=== PATIENT | female | born 1965 | race African-American/Black ===

== ENCOUNTER 2017-12-12 09:58 | Inpatient (IN) | payer MEDICAID, OTHER ==
[~2017-12-12] VITALS: Ht 149.9 cm; Wt 78.3 kg
[~2017-12-12 09:58] MED LIST: ASPI-556 PO; BUPR300T54 PO; FLUO-191 PO; HYDR25TA PO; LISI-662 PO; RISP4 PO; TRAZ-144 PO
[2017-12-12] MEDS ORDERED: AMLO2.5T PO (10:09)
[2017-12-12] MEDS ORDERED: ARIP2 PO (10:09)
[2017-12-12] MEDS ORDERED: AmLODIPine BESYLATE 5 MG TABLET PO ONE (10:45)
[2017-12-12 11:37] LABS: BASOPHILS % (AUTO) 0.6 % (0.0-2.0); EOSINOPHILS % (AUTO) 2.9 % (1.0-6.0); HEMATOCRIT 41.4 % (36-46); HEMOGLOBIN 14.3 g/dL (12.0-16.0); LYMPHOCYTES % (AUTO) 19.5 % (22.0-44.0); MEAN CORPUSCULAR HEMOGLOBIN 28.9 pg (26.0-34.0); MEAN CORPUSCULAR HGB CONC 34.5 G/dL (31.0-37.0); MEAN CORPUSCULAR VOLUME 84 fL (80-100); MONOCYTES # (AUTO) 0.7 K/uL (0.1-1.0); NEUTROPHILS # (AUTO) 7.1 K/uL (1.8-7.7); PLATELET COUNT (AUTO) 251 K/uL (150-450); RED BLOOD CELL COUNT(AUTO) 4.93 MIL/uL (4.00-5.20); RED CELL DISTRIBUTION WIDTH 14.2 % (11.5-14.5)
[2017-12-12 11:43] LABS: ANION GAP 8 mmol/L (8-16); CALCIUM, TOTAL 8.5 mg/dL (8.8-10.5); CARBON DIOXIDE 27 mmol/L (22-29); CHLORIDE 106 mmol/L (98-107); CREATININE 1.01 mg/dL (0.60-1.30); GLOMERULAR FILTR. RATE CALC > 60 mL/min (>60); GLUCOSE,RANDOM 99 mg/dL (70-110); POTASSIUM 4.2 mmol/L (3.5-5.1); SODIUM SERUM 141 mmol/L (136-145); UREA NITROGEN, BLOOD 18 mg/dL (7-18)
[2017-12-12 11:49] LABS: ALANINE AMINOTRANSFERASE 34 U/L (12-78); ALBUMIN 3.3 g/dL (3.4-5.0); ALKALINE PHOSPHATASE 106 U/L (46-116); ASPARTATE AMINOTRANSFERASE 18 U/L (15-37); BILIRUBIN,TOTAL 0.3 mg/dL (0.1-1.0); TOTAL PROTEIN, SERUM 7.2 g/dL (6.4-8.2)
[2017-12-12 12:07] LABS: AMPHET/METH SCREEN,URINE NEGATIVE (NEGATIVE); BARBITURATE SCREEN, URINE NEGATIVE (NEGATIVE); BENZODIAZEPINES SCREEN,URINE NEGATIVE (NEGATIVE); CANNABINOID SCREEN,URINE NEGATIVE (NEGATIVE); COCAINE SCREEN,URINE NEGATIVE (NEGATIVE); METHADONE SCREEN, URINE NEGATIVE (NEGATIVE); OPIATE SCREEN,URINE NEGATIVE (NEGATIVE)
[2017-12-12 12:08] LABS: PHENCYCLIDINE SCREEN,URINE NEGATIVE (NEGATIVE)
[2017-12-12] MEDS ORDERED: HYDROCHLOROTHIAZIDE 25 MG TABLET PO ONE (13:15)
[2017-12-12] MEDS ORDERED: ACETAMINOPHEN 325 MG TABLET PO PRN (13:30)
[2017-12-12] MEDS ORDERED: IBUPROFEN 400 MG TABLET PO PRN (13:30)
[2017-12-12] MEDS ORDERED: LISINOPRIL 20 MG TABLET PO ONE (14:15)
[2017-12-12] MEDS ORDERED: LISINOPRIL 10 MG TABLET ONE (15:07)
[2017-12-12] MEDS: HALOPERIDOL 5 MG TABLET PO PRN (18:11)
[2017-12-12] MEDS: LORazepam 2 MG TABLET PO PRN (18:11)
[2017-12-12 18:29] VITALS: BP 158/111
[2017-12-12 19:36] VITALS: BP 135/87
[2017-12-12] MEDS ORDERED: CloNIDine HCL 0.1 MG TABLET PO PRN (19:45)
[2017-12-12] MEDS ORDERED: PNEUMOCOCCAL VACCINE POLYVALENT 0.5 ML VIAL [PPSV23] IM ONE (21:00)
[2017-12-13 05:02] VITALS: BP 141/96
[2017-12-13] MEDS: HALOPERIDOL 5 MG TABLET PO PRN (08:57)
[2017-12-13] MEDS: AmLODIPine BESYLATE 5 MG TABLET PO SCH (08:57)
[2017-12-13] MEDS: LORazepam 2 MG TABLET PO PRN (08:57)
[2017-12-13 09:32] LABS: HEMOGLOBIN A1C 6.1 % (4.5-6.2)
[2017-12-13 09:43] LABS: CHOL/HDL RATIO 3.7 (3.9-5.7); THYROID STIMULATING HORMONE 2.13 uIU/mL (0.36-3.74)
[2017-12-13] MEDS: FLUoxetine HCL 20 MG CAPSULE PO SCH (10:21)
[2017-12-13] MEDS: ARIPiprazole 10 MG TABLET PO SCH (10:21)
[2017-12-13 10:25] VITALS: BP 130/85
[2017-12-13 16:09] VITALS: BP 130/91
[2017-12-13] MEDS ORDERED: IBUPROFEN 400 MG TABLET PO PRN (21:30)
[2017-12-13] MEDS ORDERED: ACETAMINOPHEN 325 MG TABLET PO PRN (21:30)
[2017-12-14 06:21] VITALS: BP 140/95
[2017-12-14 07:44] LABS: HEMOGLOBIN A1C 6.1 % (4.5-6.2)
[2017-12-14 08:17] VITALS: BP 139/86
[2017-12-14 08:20] LABS: CHOL/HDL RATIO 3.8 (3.9-5.7); THYROID STIMULATING HORMONE 2.17 uIU/mL (0.36-3.74)
[2017-12-14] MEDS: AmLODIPine BESYLATE 5 MG TABLET PO SCH (08:42)
[2017-12-14] MEDS: LORazepam 2 MG TABLET PO PRN ×2 (08:42→16:34)
[2017-12-14] MEDS: FLUoxetine HCL 20 MG CAPSULE PO SCH (08:42)
[2017-12-14] MEDS: HALOPERIDOL 5 MG TABLET PO PRN ×2 (08:42→16:34)
[2017-12-14] MEDS: ARIPiprazole 10 MG TABLET PO SCH (08:42)
[2017-12-14 16:15] VITALS: BP 130/96
[2017-12-15 06:07] VITALS: BP 104/66
[2017-12-15] MEDS: ARIPiprazole 10 MG TABLET PO SCH (08:13)
[2017-12-15 08:14] VITALS: BP 145/96
[2017-12-15] MEDS: FLUoxetine HCL 20 MG CAPSULE PO SCH (08:14)
[2017-12-15] MEDS: LORazepam 2 MG TABLET PO PRN (08:14)
[2017-12-15] MEDS: AmLODIPine BESYLATE 5 MG TABLET PO SCH (08:14)
== END 2017-12-15 15:00 | disposition home or self-care (01) | DRG 751 ==
LOC: EMS 09:59 → B3A 12:18
PROVIDERS: ADMIT Psychiatry & Neurology Psychiatry; ATTEND Psychiatry & Neurology Psychiatry
DX: F33.3 Major depressive disorder, recurrent, severe with psychotic symptoms (principal); I10 Essential (primary) hypertension; F10.10 Alcohol abuse, uncomplicated; F43.10 Post-traumatic stress disorder, unspecified; F19.10 Other psychoactive substance abuse, uncomplicated; F17.210 Nicotine dependence, cigarettes, uncomplicated; Z28.21 Immunization not carried out because of patient refusal; Z88.0 Allergy status to penicillin; Z79.82 Long term (current) use of aspirin; Z79.899 Other long term (current) drug therapy; Z82.49 Family history of ischemic heart disease and other diseases of the circulatory system; Z80.9 Family history of malignant neoplasm, unspecified; Z71.41 Alcohol abuse counseling and surveillance of alcoholic; Z71.51 Drug abuse counseling and surveillance of drug abuser
CPT/HCPCS: 83036; 84443; 99285; G0480